=== PATIENT | male | born 2000 | race Caucasian/White ===

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

== ENCOUNTER 2024-02-13 17:46 | Emergency (ER) | payer BC, SELFPAY ==
--- NOTE | 2024-02-13 17:54 | ED_ITS ---
<Statement entered by Pat Broussard DO - 02/14/24 00:22> I was consulted by the ZANA, and we discussed the complexity of the problems being addressed. I approved the treatment and management plan for this patient's care in the emergency department, thus performing a substantive portion of the medical decision making. Pat Broussard DO Discharge Plan Disposition Patient Disposition: Home, Self-Care Condition: Good Prescriptions Prescriptions: New prednisone 50 mg tablet 50 mg PO DAILY 5 Days Qty: 5 0RF meclizine 25 mg tablet 25 mg PO QID PRN (Reason: dizziness) Qty: 10 0RF No Action hydroxyzine pamoate 25 MG capsule 25 mg PO DAILYP PRN (Reason: Anxiety) paroxetine HCl [Paxil] 20 MG tablet 20 mg PO DAILY Referrals Follow up/Referrals: Vivian Layton APRN [Nurse Practitioner] - See instructions Reynaldo West MD [Primary Care Provider] - See instructions Activity Restrictions/Add. Instructions Additional Instructions/Restrictions: I have sent in steroids and antiemetics to your pharmacy. They may not be avail able until Monday. I have given you doses of both medications here. I have also referred you to ear nose and throat specialists please call and make your appointment and the first business day that they are reopen which may be Monday or Monday of next week. Follow-up with your PCP for no improvement or worsening signs or symptoms or return to the ER as needed. Clinical Impressions Clinical Impression: Benign paroxysmal positional vertigo Qualifiers: Laterality: unspecified laterality Qualified Code(s): H81.10 - Benign paroxysmal vertigo, unspecified ear Instructions Patient Instructions: Benign Paroxysmal Positional Vertigo Print Language Print Language: Hungarian Discharge ED Provider: Pat Broussard General Adult HPI General Chief complaint: Recheck/Abnormal Lab/Rx Stated complaint: high bp, dizzy Time Seen by Provider: 02/13/24 17:54 History of Present Illness HPI narrative: Patient presents for evaluation of acute dizziness. Patient states that he had acute onset of t dizziness this afternoon. It is occurred several times and not been persistent. It does appear to be positional. He is never experienced this before. Not had any recent upper respiratory tract infections. He denies any headache associated with it chest pain shortness of breath fever chills hemoptysis hematochezia melena but does report nausea but no vomiting or diarrhea. Patient states sitting upright holding his head still is the best position lying down turning his head to the right distal worst. Related Data Home Medications ?Medication ?Instructions ?Recorded ?Confirmed hydroxyzine pamoate 25 mg capsule 25 mg PO DAILYP PRN Anxiety 08/11/17 10/24/17 paroxetine HCl 20 mg tablet (Paxil) 20 mg PO DAILY Depression 10/24/17 10/24/17 Previous Rx's ?Medication ?Instructions ?Recorded meclizine 25 mg tablet 25 mg PO QID PRN dizziness #10 tabs 02/13/24 prednisone 50 mg tablet 50 mg PO DAILY 5 days #5 tabs 02/13/24 Allergies Allergy/AdvReac Type Severity Reaction Status Date / Time No Known Allergies Allergy Verified 10/24/17 21:28 [facility] Disclaimer: The information contained in this section may have been updated after the patient was seen, as this information can be updated by other users. Social History Smoking Status: Never smoker second hand exposure: No alcohol intake: never current occupational status: employed Travel in the last 8 weeks: None caffeine: No ROS Obtained: Yes Systems reviewed as appropriate & no additional complaints except as documented Physical Exam General General appearance: alert and in no apparent distress ENT ENT exam: Present normal exam, normal oropharynx, mucous membranes moist and TM's normal bilaterally Neck Neck exam: Present normal inspection and full ROM; Absent lymphadenopathy Chest Chest inspection: Present normal inspection and symmetric chest wall rise Respiratory Respiratory exam: Present normal lung sounds bilaterally Cardiovascular Cardiovascular exam: Present regular rate Neurological Exam Neurological exam: Present alert, oriented X3, CN II-XII intact and normal gait; Absent motor sensory deficit Medical Decision Making Medical Records Medical records reviewed: Yes I reviewed the patient's medical records. Screening: Per USPSTF and CDC recommendations, given the prevalence of disease in our region, it is our hospital?s policy to screen for HIV and viral Hepatitis for all patients aged 18 and over and those with ongoing risk factors. Edwin Inquiry Pt receiving controlled substance: No Vital Signs: 02/13/24 17:56 02/13/24 18:00 02/13/24 18:37 Temperature 98.2 F 98.2 F Temperature Source Oral Pulse Rate 80 Pulse Rate [Left] 89 Respiratory Rate 16 20 Blood Pressure 125/79 Blood Pressure [Right Arm] 137/92 H 137/92 H Blood Pressure Mean [Right Arm] 107 107 Blood Pressure Source [Right Arm] Automatic Cuff Automatic Cuff Blood Pressure Position [Right Arm] Sitting Sitting 02 Sat by Pulse Oximetry 97 Oxygen Delivery Method Room Air Room Air Orders (Tests/Meds): ED MEDICATIONS Discontinued Medications Generic Name Dose Route Start Last Admin Trade Name Nancy PRN Reason Stop Dose Admin Meclizine HCl 25 mg 02/13/24 18:26 02/13/24 18:36 Meclizine 25mg Tablet PO 02/13/24 18:27 25 mg ONCE ONE Administration Prednisone 60 mg 02/13/24 18:26 02/13/24 18:36 Prednisone 20mg Tab PO 02/13/24 18:27 60 mg ONCE ONE Administration Medical Decision Narrative: In summary patient is a 23-year-old male who presents to the emergency department for evaluation of dizziness. Patient is dynamically stable upon arrival, afebrile. Physical exam is remarkable for a Vanessa Coma Score 15, patient is awake alert and oriented person place and circumstance, cranial nerves II through XII are intact grossly to exam. Pupils are equal round reactive to light, there is no nuchal rigidity or C-spine tenderness, there is no cervical lymphadenopathy, there are no focal neurologic deficits. Patient is symptomatic when going from lying to sitting with nystagmus, patient is asymptomatic with head turn to the left but very symptomatic with head turn to the right while supine again nystagmus is seen.. Differential diagnosis includes central versus peripheral vertigo although there are no red flags for central vertigo and patient has classic BPPV signs.. Initial workup was considered with labs and imaging but again there are no red flags for any other cause besides BPPV thus deferred. Initial interventions include prednisone and meclizine. I had an interactive discussion with the patient and his parents regarding the diagnosis of BPPV and via patient directed decision making and discharge patient is comfortable going home with a prescription for meclizine the short course of steroids and referral to ENT with strict return precautions. Thus patient is appropriate for discharge Critical Care Critical Care Time Critical Care Time: No
[2024-02-13 17:56] VITALS: BP 137/92; PULSE 89; RESP 16; TEMP 36.8; O2SAT 97; BMI 30.1
[2024-02-13 18:00] VITALS: BP 137/92
[2024-02-13] MEDS: predniSONE 20MG TAB 60 MG PO (18:36)
[2024-02-13] MEDS: MECLIZINE 25MG TABLET 25 MG PO (18:36)
[2024-02-13 18:37] VITALS: BP 125/79; PULSE 80; RESP 20; TEMP 36.8; O2SAT 98
== END 2024-02-13 18:45 | disposition home or self-care (01) ==
PROVIDERS: Emergency Provider Emergency Medicine; PCP Internal Medicine Adolescent Medicine
DX: H81.10 Benign paroxysmal vertigo, unspecified ear (principal)
CPT/HCPCS: 99283